=== PATIENT | female | born 1990 | race Two or more races ===

== ENCOUNTER 2025-05-14 16:17 | Emergency (ER) | payer MEDICAID ==
[~2025-05-14] VITALS: Ht 167.6 cm; Wt 65.8 kg
[2025-05-14 16:22] VITALS: BP 137/82; TEMP 98.3; O2SAT 97
[2025-05-14] MEDS: KETOROLAC TROMETHAMINE 15 MG/ML VIAL IM ONE (16:35)
[2025-05-14] MEDS ORDERED: KETOROLAC TROMETHAMINE 15 MG/ML VIAL ONE (16:35)
[2025-05-14] MEDS ORDERED: LIDO30AD10 TP (17:10)
[2025-05-14] MEDS ORDERED: ACET325C7 PO (17:10)
[2025-05-14] MEDS ORDERED: IBUP-1957 PO (17:10)
[2025-05-14] MEDS ORDERED: METH-649 PO (17:10)
== END 2025-05-14 17:46 | disposition home or self-care (01) ==
LOC: ER 16:25
DX: M54.50 Low back pain, unspecified (principal); Z79.1 Long term (current) use of non-steroidal anti-inflammatories (NSAID)
CPT/HCPCS: 99283; 96372; 72110; J1885